=== PATIENT | male | born 1985 ===

== ENCOUNTER 2018-06-24 16:04 | Emergency (ER) | payer OTHER ==
[2018-06-24 16:09] VITALS: BMI 29.9
[2018-06-24 16:13] VITALS: TEMP 98.2
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
[2018-06-24 18:14] VITALS: BP 157/91; PULSE 83; RESP 17; O2SAT 98
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
== END 2018-06-24 18:15 | disposition home or self-care (01) ==
LOC: ED 16:04
DX: S80.01XA Contusion of right knee, initial encounter (principal); V49.49XA Driver injured in collision with other motor vehicles in traffic accident, initial encounter; Y92.410 Unspecified street and highway as the place of occurrence of the external cause